=== PATIENT | male | born 1980 | race Caucasian/White ===

== ENCOUNTER 2020-03-29 01:07 | Inpatient (IN) | payer MEDICAID, SELFPAY ==
[2020-03-29] VITALS (12 sets, daily range): BP systolic 110–130; BP diastolic 66–86; PULSE 73–90; RESP 16–18; TEMP 36.4–36.8; O2SAT 94–99; BMI 19.7; BMI 19.0
--- NOTE | 2020-03-29 02:06 | ED.VIS.GEN ---
History of Present Illness Chief Complaint: Substance Abuse Informant: Patient Narrative: Patient is a 39-year-old male with extensive history of illicit drug abuse presenting for detox. Patient states he regularly uses heroin and methamphetamines as well as alcohol. He last had a half of the tall boys of beer today but denies any history of alcohol withdrawal or DTs. Patient states he normally has 3 tall boys a day. He injects heroin and methamphetamines. He uses daily and uses about a half a gram of heroin as well as a quarter of a gram to 1 g of methamphetamines a day. He last used heroin and meth 2 days ago. He is now having some withdrawal symptoms including hot and cold flashes, bad taste in his mouth, restless legs, indigestion and insomnia. Patient states he has been in detox before but most recently was 4 years ago. He states he is ready to get his life together and is tired of disappointing people. He denies any other complaints at this time. Past Medical History - Allergies and Home Meds Allergies/Adverse Reactions: Allergies No Known Allergies Allergy (Verified 03/29/20 01:10) Past Medical History: - - IV drug use Surgical History: noncontributory Lives: Spouse/ Significant Other Smoking Status: Current every day smoker Alcohol: Heavy Drugs: Heroin, - - Methamphetamines - Family History Maternal Family History: Reports: - - Patient with maternal family history of hypertension and ADHD/ADD. Paternal Family History: Reports: Hypertension Review of Systems General: Reports: Chills, Malaise. Denies: Fever, Sweats Eyes: Denies: Visual changes - bilaterally, Diplopia ENT: Denies: Rhinorrhea, Sore throat Cardiovascular: Denies: Chest pain, Palpitations Respiratory: Denies: Dyspnea, Cough, Dyspnea on exertion Gastrointestinal: Reports: Nausea - Indigestion. Denies: Abdominal pain, Vomiting, Diarrhea, Melena, Hematochezia Genitourinary: Denies: Dysuria, Hematuria, Frequency Musculoskeletal: Denies: Back pain, Swelling, Extremity Pain Skin: Denies: Rash, Wounds Neurological: Denies: Headache, Weakness, Numbness Psych: Reports: Depression. Denies: Suicidal thoughts, Suicidal ideations Physical Exam Vital Signs/Narrative: Vital Signs Temp Pulse Resp BP Pulse Ox 03/29/20 01:08 97.9 F 90 18 130/86 H 97 Inital Vital Signs reviewed: Yes General: Well nourished, Well developed, No Acute Distress Head: Normocephalic, Atraumatic Eyes: Perrl, EOMI ENT: Moist mucous membranes, No rhinorrhea Neck: Supple, Nontender Cardiovascular: Regular rate, Regular rhythm, No murmurs Respiratory: No distress, CTA bilaterally, Chest nontender Abdomen: Soft, Nontender, Nondistended, Normal bowel sounds. Negative for: Guarding, Rebound tenderness Back: Nontender, Normal Inspection. Negative for: CVA tenderness Extremities: Nontender, No edema Skin: Normal color, No rash Neurological: Alert, Oriented x3, Cranial nerves II-XII grossly intact, Normal Strength, Normal Sensation Psychological: Normal affect, Normal Mood. Negative for: Depressed, Agitated Diagnostic/Tx/Re-eval Laboratory Data 03/29/20 03/29/20 03/29/20 01:20 01:28 01:28 WBC 5.6 RBC 4.45 L Hgb 13.7 Hct 40.3 MCV 90.6 MCH 30.8 MCHC 34.0 RDW Std Deviation 44.7 H RDW Coeff of Claribel 13.4 Plt Count 201 MPV 10.2 Immature Gran % (Auto) 0.400 Neut % (Auto) 53.6 Lymph % (Auto) 36.2 [place] % (Auto) 7.3 Eos % (Auto) 2.0 Baso % (Auto) 0.5 Absolute Neuts (auto) 3.0 Absolute Lymphs (auto) 2.02 Nucleated RBC % 0 Sodium 143 Potassium 3.8 Chloride 110 H Carbon Dioxide 28.0 Anion Gap 5 BUN 20 H Creatinine 0.92 Estim Creat Clear Calc 101.48 Est GFR (MDRD) Af Amer 118 Est GFR (MDRD) Non-Af 98 BUN/Creatinine Ratio 21.8 H Glucose 140 H Calcium 9.0 Phosphorus 3.0 Magnesium 2.2 Total Bilirubin 0.20 AST 58 H ALT 97 H Alkaline Phosphatase 74 Total Protein 7.6 Albumin 3.6 Globulin 4.0 Albumin/Globulin Ratio 0.9 Urine Color Yellow Urine Clarity Clear Urine pH 7.0 Ur Specific [place] 1.010 Urine Protein 15 H Urine Glucose (UA) Normal Urine Ketones Negative Urine Occult Blood Negative Urine Nitrite Negative Urine Bilirubin Negative Urine Urobilinogen 1 H Ur Leukocyte Esterase Negative Urine RBC 0 SEEN Urine WBC 0 SEEN Ur Squamous Epith Cells 0 SEEN Amorphous Sediment 1+ Urine Bacteria RARE Urine Mucus 0 SEEN Urine Opiates Screen Urine Methadone Screen Ur Barbiturates Screen Ur Phencyclidine Scrn Ur Amphetamines Screen U Methamphetamin-MDMA U Benzodiazepines Scrn Urine Cocaine Screen U Cannabinoids Screen Ur Drug Screen Comment Ethyl Alcohol HIV 1&2 Antibody 03/29/20 03/29/20 03/29/20 01:28 01:28 01:28 WBC RBC Hgb Hct MCV MCH MCHC RDW Std Deviation RDW Coeff of Claribel Plt Count MPV Immature Gran % (Auto) Neut % (Auto) Lymph % (Auto) [place] % (Auto) Eos % (Auto) Baso % (Auto) Absolute Neuts (auto) Absolute Lymphs (auto) Nucleated RBC % Sodium Potassium Chloride Carbon Dioxide Anion Gap BUN Creatinine Estim Creat Clear Calc Est GFR (MDRD) Af Amer Est GFR (MDRD) Non-Af BUN/Creatinine Ratio Glucose Calcium Phosphorus Cancelled Magnesium Cancelled Total Bilirubin AST ALT Alkaline Phosphatase Total Protein Albumin Globulin Albumin/Globulin Ratio Urine Color Urine Clarity Urine pH Ur Specific [place] Urine Protein Urine Glucose (UA) Urine Ketones Urine Occult Blood Urine Nitrite Urine Bilirubin Urine Urobilinogen Ur Leukocyte Esterase Urine RBC Urine WBC Ur Squamous Epith Cells Amorphous Sediment Urine Bacteria Urine Mucus Urine Opiates Screen NEGATIVE Urine Methadone Screen NEGATIVE Ur Barbiturates Screen NEGATIVE Ur Phencyclidine Scrn NEGATIVE Ur Amphetamines Screen POSITIVE H U Methamphetamin-MDMA POSITIVE H U Benzodiazepines Scrn NEGATIVE Urine Cocaine Screen NEGATIVE U Cannabinoids Screen NEGATIVE Ur Drug Screen Comment Ethyl Alcohol 7.0 HIV 1&2 Antibody 03/29/20 01:28 WBC RBC Hgb Hct MCV MCH MCHC RDW Std Deviation RDW Coeff of Claribel Plt Count MPV Immature Gran % (Auto) Neut % (Auto) Lymph % (Auto) [place] % (Auto) Eos % (Auto) Baso % (Auto) Absolute Neuts (auto) Absolute Lymphs (auto) Nucleated RBC % Sodium Potassium Chloride Carbon Dioxide Anion Gap BUN Creatinine Estim Creat Clear Calc Est GFR (MDRD) Af Amer Est GFR (MDRD) Non-Af BUN/Creatinine Ratio Glucose Calcium Phosphorus Magnesium Total Bilirubin AST ALT Alkaline Phosphatase Total Protein Albumin Globulin Albumin/Globulin Ratio Urine Color Urine Clarity Urine pH Ur Specific [place] Urine Protein Urine Glucose (UA) Urine Ketones Urine Occult Blood Urine Nitrite Urine Bilirubin Urine Urobilinogen Ur Leukocyte Esterase Urine RBC Urine WBC Ur Squamous Epith Cells Amorphous Sediment Urine Bacteria Urine Mucus Urine Opiates Screen Urine Methadone Screen Ur Barbiturates Screen Ur Phencyclidine Scrn Ur Amphetamines Screen U Methamphetamin-MDMA U Benzodiazepines Scrn Urine Cocaine Screen U Cannabinoids Screen Ur Drug Screen Comment Ethyl Alcohol HIV 1&2 Antibody Non-Reactive - Medical Decision Making Patient presents to the ER requesting drug detox. Patient not currently intoxicated. He meets a daily alcohol use but does not appear to be having any active alcohol withdrawal symptoms. He has good insight at this time. Patient be admitted for detox for heroin. He is overall well-appearing. He is stable for the general medical floor at time of disposition. ED Disposition - Plan for ED Patient: Disposition: Acute Care Hospital [facility] Diagnosis: Opiate withdrawal, IV drug abuse
--- NOTE | 2020-03-29 02:10 | HP.PCM_ITS ---
Problem List (1) Opiate withdrawal Status: Acute (2) Alcohol withdrawal Status: Acute Qualifiers: Complication of substance-induced condition: with unspecified complication Qualified Code(s): F10.239 - Alcohol dependence with withdrawal, unspecified (3) Heroin use Status: Chronic (4) IV drug abuse Status: Chronic (5) Tobacco use Status: Chronic History of Present Illness Date of Admission: 03/29/20 Chief Complaint: Acute EtOH and Opiate withdrawal The patient is a 39 y/o m w/ PMHx: EtOH Abuse, Polysubstance abuse with IVDA, Tobacco use who presents to the [facility] on 03/29/20 w/ noted acute EtOH withdrawal, onset starting evening prior to ED presentation following last EtOH intake of 1/2 tall boy earlier in the day prior with normally 3 tall boys daily with onset of nausea, tremors, agitation, tactile disturbances in addition to acute opiate withdrawal onset starting similarly over the last 24 hours followinjg last usage 2 days prior w/ 1/2 gm heroin and 1 gm methamphetamine with noted additional abdominal pain/cramping, generalized body aches and pains, rhinorrhea, piloerection, fatigue, restless leg, sweating, yawning. Patient interested in attaining clean status. Discussed at length need to remain distanced from any prior connections with any substance users. Patient lives with his girlfriend who does not use any substances. Work-up in the ED included T 97.9, heart rate 90, BP 130/86, respiratory rate 18, 97% on room air, pending CBC, CMP, UDS and ethyl alcohol level upon requested evaluation. Past Medical History Past Medical History (Chronic Problems): Chronic Problems Heroin use (Chronic) IV drug abuse (Chronic) Tobacco use (Chronic) Allergies No Known Allergies Allergy (Verified 03/29/20 01:10) Home Medications: Ambulatory Orders Medication Instructions Recorded NK 03/29/20 Psychiatric History: Anxiety Lives: Spouse/ Significant Other - Patient lives with his girlfriend. Smoking Status: Current every day smoker - Patient notes 1/2 pack/day cigarette tobacco usage since youth. Tobacco Use: Cigarettes Alcohol: Heavy - Patient notes twisted teas as well as at least 3-4 tall boys daily. Drugs: - - Patient uses IV heroin and methamphetamine with at least 1/2 g/day of heroin and 1/4 to 1 g daily of methamphetamine. - *Family History Maternal History Items: - - Patient with maternal family history of hypertension and ADHD/ADD. Paternal History Items: Hypertension Review of Systems Constitutional: Reports: Anorexia, Chills, Malaise, Weakness, Fatigue. Denies: Fever, Weight Change HEENT: Reports: Nasal Congestion, Post Nasal Drip, Sinus Congestion. Denies: H ead Aches, Sinus Drainage Cardiovascular: Denies: Chest Pain, Palpitations Respiratory: Denies: Cough, Shortness of breath at rest, Sputum production Gastrointestinal: Reports: Abdominal Pain, Nausea. Denies: Diarrhea, Vomiting Genitourinary: Denies: Dysuria Musculoskeletal: Reports: Back Pain, Joint Pain, Muscle pain. Denies: Joint Tenderness Skin: Denies: Rash, Wounds Neurological: Reports: Tremor, - - tactile hallucinations present.. Denies: Focal weakness, Numbness, Tingling Psychiatric: Reports: Anxiety. Denies: Depression, Homicidal Ideations, Suicidal Ideations Endocrine: Reports: Heat/ Cold Intolerance Hematologic/ Lymphatic: Denies: Easy Bruising, Easy Bleeding VTE Information - Inpt Only VTE Present on Admission: No VTE Mechan Device Prophylaxis: None VTE Pharm Prophylaxis ordered?: No Reason prophylaxis not ordered:: Treatment Not Indicated Patient Problems: Active and Suspected Problems Opiate withdrawal (Acute) Alcohol withdrawal (Acute) Subjective: Patient laying in the ED bed, uncomfortable appearing, mild tremors, restless. Objective: Physical Examination: General: awake, alert, oriented x 3 and cooperative, seated upright in the ED bed, fatigued appearance although restless and mildly agitated. Skin: normal color, turgor, no icterus, cyanosis. HEENT: AT/NC, EOMI, PERRLA, dry MM, rhinorrhea evident, no carotid bruits or JVD noted. Lungs: CTA bilaterally, moderate effort, moderate decrease BL bases, no rales, ronchi or wheezing. Heart: Mildly tachycardic with regular rhythm; no gallop, rub audible. Abdomen: soft, mild generalized discomfort with palpation, ND, mildly hyperactive BS, positive HM. Extremities: no cyanosis, clubbing, or edema. Neurological: patient awake, alert, oriented x 3; cognitive function intact; pupils equally reactive to light and accomodation; cranial nerves II-XII grossly normal, moving all 4 extremities, no focal deficits, strength moderately global decrease secondary to acute presentation, mild tremors noted, restless, mildly agitated. Psychiatric: affect appears uncomfortable, mildly agitated, does admit to anxiety but no acute evidence of depressive or anxiety feelings. - Physical Exam Vitals/I&O's: Vital Signs Temp Pulse Resp BP Pulse Ox 97.9 F 90 18 130/86 H 97 03/29/20 01:08 03/29/20 01:08 03/29/20 01:08 03/29/20 01:08 03/29/20 01:08 Oxygen Delivery Method Room Air Weight: 145 lb 4.554 oz Body Mass Index (BMI) 19.7 Laboratory Results 03/29/20 01:28: WBC Pending, RBC Pending, Hgb Pending, Hct Pending, MCV Pending, MCH Pending, MCHC Pending, RDW Std Deviation Pending, RDW Coeff of Claribel Pending, Plt Count Pending, Neut % (Auto) Pending, Absolute Neuts (auto) Pending 03/29/20 01:28: Sodium Pending, Potassium Pending, Chloride Pending, Carbon Dioxide Pending, Anion Gap Pending, BUN Pending, Creatinine Pending, Est GFR (MDRD) Af Amer Pending, Est GFR (MDRD) Non-Af Pending, BUN/Creatinine Ratio Pending, Glucose Pending, Calcium Pending, Total Bilirubin Pending, AST Pending, ALT Pending, Alkaline Phosphatase Pending, Total Protein Pending, Albumin Pending 03/29/20 01:28: Ethyl Alcohol Pending 03/29/20 01:28: Urine Opiates Screen Pending, Urine Methadone Screen Pending, Ur Barbiturates Screen Pending, Ur Phencyclidine Scrn Pending, Ur Amphetamines Screen Pending, U Methamphetamin-MDMA Pending, U Benzodiazepines Scrn Pending, Urine Cocaine Screen Pending, U Cannabinoids Screen Pending, Ur Drug Screen Comment Pending Assessment/Plan All Active Problems Opiate withdrawal (Acute) Alcohol withdrawal (Acute) The patient is a 39 y/o m w/ PMHx: EtOH Abuse, Polysubstance abuse with IVDA ( heroin, meth), Tobacco use who presents to the [facility] on 03/29/20 w/ noted acute EtOH and opiate withdrawal 1. Acute EtOH Withdrawal: Will admit to MS given planned usage concurrent withdrawal protocols, routine labs obtained in the ED upon presentation and pending upon evaluation. Given interest in sobriety, will initiate and continue on protocol with taper course of Phenobarbital, scheduled gabapentin for seizure prophylaxis, as needed Catapres, Bentyl, Vistaril, IV fluids, IV antiemetics, Tylenol as needed for pain. Will consult Case management for assistance for transition to next level of rehabilitation care. Mag, phos pending. Maintain on CIWA protocol concurrently. 2. Acute Opiate Withdrawal: In addition to noted above EtOH abuse, patient with significant opiate abuse with IV heroin, pending ED labs as noted, will initiate on additionally tapering course of Subutex, as needed Librium, Sinemet, Catapres, Bentyl, Vistaril, IV fluids, IV antiemetics, Tylenol as needed for pain. CM as noted consulted for assistance for transition to next level of care. 3. Polysubstance Abuse, IVDA Hx, History of Hepatitis C, Chronic: Patient currently not candidate for hep C treatment currently as needs to be clean, sober x 6 months, documented attendance NA or AA meetings, counseling and ongoing negative drug screens. Once appropriate GI, ID to initiate. HIV, hepatitis panel to assess for co-infection pending. Encouraged PCP establishment and follow-up. 4. Tobacco Abuse: Encouraged cessation, inpatient consultation per RT, NR if desired. 5. DVT prophylaxis: Low risk, encourage ambulation. Inpatient E&M: [id number] Init Hosp L3
[2020-03-29 02:12] LABS: Absolute Lymphocyte Count 2.02 X10^3/uL (0.83-4.51); Basophil# 0.03 X10^3/uL; Basophil% 0.5 % (0-1); Eosinophil# 0.11 X10^3/uL; Hematocrit 40.3 % (40-54); Hemoglobin 13.7 g/dL (13.0-16.5); Lymphocyte # 2.02 X10^3/ul (4.0); Lymphocyte % 36.2 % (19-41); Mean Corpuscular Hgb 30.8 pg (27.0-32.0); Mean Corpuscular Volume 90.6 fL (80-94); Mean Platelet Vol. 10.2 fl (6.2-12.0); Monocyte# 0.41 X10^3/uL; Monocyte% 7.3 % (0-10); NRBC Flagged by Analyzer 0 % (0-5); Neutrophil # 2.99 X10^3/uL (2.7-7.7); Neutrophil % 53.6 % (47-70); Platelet Count 201 K/mm3 (150-450); RBC Distribution Width CV 13.4 % (11.6-14.6); RBC Distribution Width SD 44.7 fl (35.1-43.9); Red Blood Count 4.45 M/mm3 (4.6-6.2); White Blood Count 5.6 K/mm3 (4.4-11.0)
[2020-03-29 02:22] LABS: Color, Urine Yellow (Yellow); Glucose, Dipstick Normal (Normal); Ketone-Dipstick Negative (Negative); Leukocyte Esterase-Dipstick Negative /ul (Negative); Mucous, Urine 0 SEEN /hpf (<or=2+); Nitrite-Dipstick Negative (Negative); Occult Blood-Urine Negative /ul (Negative); Protein-Dipstick 15 mg/dl (Negative); Red Blood Cells-Urine 0 SEEN /hpf (0-5); Squamous Epithelial Cells - UA 0 SEEN /hpf (0-5); Urine Bilirubin Dipstick Negative (Negative); Urine Clarity Clear (Clear); Urine Urobilinogen 1 mg/dl (Normal); White Blood Cells 0 SEEN /hpf (0-5)
[2020-03-29 02:26] LABS: ALB/GLOB Ratio 0.9 RATIO (0.9-2.4); AST(SGOT) 58 U/L (15-37); Alanine Aminotransfer ALT/SGPT 97 U/L (16-61); Albumin, Serum 3.6 g/dL (3.2-5.0); Alkaline Phosphatase 74 U/L (45-117); Anion Gap 5 (5-15); BUN 20 mg/dL (7-18); BUN/Creat Ratio 21.8 RATIO (10-20); Chloride 110 mmol/L (98-107); Creatinine, Serum 0.92 mg/dL (0.70-1.30); EST Glomerular Filtration Rate 98 mL/min (>60); Est Glom Filt Rate - Afr Amer 118 mL/min (>60); Estimated Creatinine Clearance 101.48 ml/min; Glucose 140 mg/dL (74-106); Potassium 3.8 mmol/L (3.5-5.1); Protein, Total 7.6 g/dL (6.4-8.2); Sodium Level 143 mmol/L (136-145)
[2020-03-29 02:27] LABS: Amphetamine Urine VISTA POSITIVE (<1000 ng/mL); Barbiturate Urine VISTA NEGATIVE (< 200 ng/mL); Benzodiazepine Urine VISTA NEGATIVE (< 200 ng/mL); Cocaine Urine VISTA NEGATIVE (< 300 ng/mL); Ecstacy Urine VISTA POSITIVE (< 500 ng/mL); Methadone Urine VISTA NEGATIVE (< 300 ng/mL); PCP Urine VISTA NEGATIVE (< 25 ng/mL); THC Urine VISTA NEGATIVE (< 50 ng/mL); Vista UDS pH Range 7
[2020-03-29 02:30] LABS: Amorphous Sediment 1+; Bacteria RARE /hpf (None Seen)
[2020-03-29 03:09] LABS: Magnesium 2.2 mg/dL (1.6-2.6)
[2020-03-29] MEDS: Lactated Ringers 1,000 ML 125 ML IV (03:18)
[2020-03-29 03:45] LABS: HIV - WCH Non-Reactive (Nonreactive)
[2020-03-29] MEDS: Phenobarbital 32.4 MG Tablet PO ×5 (04:06→20:42)
[2020-03-29] MEDS: Folic Acid 1 MG Tablet PO (11:38)
[2020-03-29] MEDS: hydrOXYzine PAM 25 MG Capsule 50 MG PO ×2 (11:38→20:57)
[2020-03-29] MEDS: Thiamine Hydrochloride 100 MG Tablet PO (11:38)
[2020-03-29] MEDS: Methocarbamol 750 MG Tablet 1500 MG PO (11:38)
[2020-03-29] MEDS: Buprenorphine HCl 2 MG TAB.SUBL SL ×2 (11:39→18:14)
[2020-03-29] MEDS: Dicyclomine 10 MG Capsule 20 MG PO (11:39)
--- NOTE | 2020-03-29 11:50 | PN_ITS ---
Patient Problems: Active and Suspected Problems Opiate withdrawal (Acute) Alcohol withdrawal (Acute) Subjective: Patient seen and examined. He complained of headache, generalized malaise, abdominal pain and cramping and felt like he was in withdrawal. He is here for detox from alcohol, heroin and methamphetamines. Review of symptoms otherwise negative. Vitals are stable. Labs unremarkable. Vitals/I&O's: Vital Signs Temp Pulse Resp BP Pulse Ox 98.3 F 73 18 110/66 99 03/29/20 08:05 03/29/20 08:05 03/29/20 08:05 03/29/20 08:05 03/29/20 08:05 Oxygen Delivery Method Room Air Weight: 143 lb 15.39 oz Body Mass Index (BMI) 19.0 Intake and Output for Last 24 Hours 03/27/20 03/28/20 03/29/20 23:59 23:59 23:59 Intake Total 1290 / 1290 Balance 1290 / 1290 General: Alert, Oriented x3, Cooperative, - - Restless, anxious HEENT: Atraumatic, PERRLA, EOMI, Normocephalic Oral: Moist Mucosa Neck: Supple, No JVD, Negative Carotid Bruits Lungs: Clear to auscultation, Normal air movement Cardiovascular: Regular rate, Regular Rhythm, Normal S1, Normal S2, No murmurs Abdomen: Bowel Sounds Present, Soft, Non Tender Extremities: No clubbing, No cyanosis, No edema, Capillary Refill Less than 3 Seconds Skin: No rashes, No breakdown Musculoskeletal: No Tenderness to Palpation of Joints or Extremities Lymphatic: No Cervical, Supraclavicular, or Inguinal Adenopathy Neurological: Cranial nerves II-XII grossly intact, Neuro grossly intact, Motor Exam 5/5 strength throughout Psych/Mental Status: Normal Affect, Appropriate, Alert and oriented to time, place, person, mood and affect Laboratory Results 03/29/20 01:20: Urine Color Yellow, Urine Clarity Clear, Urine pH 7.0, Ur Specific [place] 1.010, Urine Protein 15 H, Urine Glucose (UA) Normal, Urine Ketones Negative, Urine Occult Blood Negative, Urine Nitrite Negative, Urine Bilirubin Negative, Urine Urobilinogen 1 H, Ur Leukocyte Esterase Negative, Urine RBC 0 SEEN, Urine WBC 0 SEEN, Ur Squamous Epith Cells 0 SEEN, Amorphous Sediment 1+, Urine Bacteria RARE, Urine Mucus 0 SEEN 03/29/20 01:28: WBC 5.6, RBC 4.45 L, Hgb 13.7, Hct 40.3, MCV 90.6, MCH 30.8, MCHC 34.0, RDW Std Deviation 44.7 H, RDW Coeff of Claribel 13.4, Plt Count 201, MPV 10.2, Immature Gran % (Auto) 0.400, Neut % (Auto) 53.6, Lymph % (Auto) 36.2, [place] % (Auto) 7.3, Eos % (Auto) 2.0, Baso % (Auto) 0.5, Absolute Neuts (auto) 3.0, Absolute Lymphs (auto) 2.02, Nucleated RBC % 0 03/29/20 01:28: Sodium 143, Potassium 3.8, Chloride 110 H, Carbon Dioxide 28.0, Anion Gap 5, BUN 20 H, Creatinine 0.92, Estim Creat Clear Calc 101.48, Est GFR (MDRD) Af Amer 118, Est GFR (MDRD) Non-Af 98, BUN/Creatinine Ratio 21.8 H, Glucose 140 H, Calcium 9.0, Phosphorus 3.0, Magnesium 2.2, Total Bilirubin 0.20, AST 58 H, ALT 97 H, Alkaline Phosphatase 74, Total Protein 7.6, Albumin 3.6, Globulin 4.0, Albumin/Globulin Ratio 0.9 03/29/20 01:28: Ethyl Alcohol 7.0 03/29/20 01:28: Urine Opiates Screen NEGATIVE, Urine Methadone Screen NEGATIVE, Ur Barbiturates Screen NEGATIVE, Ur Phencyclidine Scrn NEGATIVE, Ur Amphetamines Screen POSITIVE H, U Methamphetamin-MDMA POSITIVE H, U Benzodiazepines Scrn NEGATIVE, Urine Cocaine Screen NEGATIVE, U Cannabinoids Screen NEGATIVE, Ur Drug Screen Comment 03/29/20 01:28: Phosphorus Cancelled, Magnesium Cancelled 03/29/20 01:28: HIV 1&2 Antibody Non-Reactive 03/29/20 06:40: Hepatitis A IgM Ab Pending, Hepatitis A Ab Total Pending, Hep Bs Antigen Pending, Hep B Core Total Ab Pending, Hep B Core IgM Ab Pending Current Medications Acetaminophen (Tylenol) 500 mg PO Q4H PRN PRN PRN Reason: Temp > 100.4 F Al Hydroxide/Mg Hydroxide (Mylanta Ii) 30 ml PO Q6H PRN PRN PRN Reason: dyspesia Bisacodyl (Dulcolax) 10 mg RECTAL DAILY PRN PRN Reason: Constipation Buprenorphine HCl (Buprenorphine Hcl) 4 mg SL Q8H [facility]; Taper Stop: 04/01/20 09:59 Last Admin: 03/29/20 11:39 Dose: 4 mg Documented by: Clonidine (Catapres) 0.1 mg PO Q8H PRN PRN PRN Reason: RESTLESSNESS Dicyclomine HCl (Bentyl) 20 mg PO Q6H PRN PRN PRN Reason: abdominal discomfort Last Admin: 03/29/20 11:39 Dose: 20 mg Documented by: Folic Acid (Folic Acid) 1 mg PO DAILY@0800 [facility] Last Admin: 03/29/20 11:38 Dose: 1 mg Documented by: Gabapentin (Neurontin) 300 mg PO Q8H PRN PRN PRN Reason: moderate to severe anxiety Hydroxyzine Pamoate (Vistaril Pamoate Capsule) 50 mg PO Q4H PRN PRN PRN Reason: mild anxiety Last Admin: 03/29/20 11:38 Dose: 50 mg Documented by: Ibuprofen (Motrin) 600 mg PO Q8H PRN PRN PRN Reason: Pain Score 1-10/10 Loperamide HCl (Imodium) 2 mg PO Q4H PRN PRN PRN Reason: LOOSE STOOLS Methocarbamol (Methocarbamol) 1,500 mg PO Q6H PRN PRN PRN Reason: MUSCLE SPASM Last Admin: 03/29/20 11:38 Dose: 1,500 mg Documented by: Nicotine (Nicoderm Cq (Pbkc)) 14 mg TRANSDERM. DAILY [facility] Last Admin: 03/29/20 11:38 Dose: 14 mg Documented by: Nutritional Formula (Lactose Free) (Ensure Enlive) 120 ml PO 4X/DAY [facility] Last Admin: 03/29/20 11:42 Dose: 120 ml Documented by: Ondansetron HCl (Zofran Odt) 8 mg PO Q8H PRN PRN PRN Reason: NAUSEA Phenobarbital (Phenobarbital) 97.2 mg PO Q4H [facility]; Taper Stop: 04/02/20 11:44 Last Admin: 03/29/20 11:39 Dose: 97.2 mg Documented by: Senna (Senokot) 2 tablet PO QHS PRN PRN PRN Reason: Constipation Sodium Chloride () 10 - 40 ml IV UD PRN PRN Reason: SALINE FLUSH Thiamine HCl (Vitamin B1) 100 mg PO DAILYCM [facility] Last Admin: 03/29/20 11:38 Dose: 100 mg Documented by: Trazodone HCl (Desyrel) 100 mg PO QHS PRN PRN PRN Reason: INSOMNIA STROKE Vital Signs/Narrative: Vital Signs Temp Pulse Resp BP Pulse Ox 03/29/20 08:05 98.3 F 73 18 110/66 99 Medical Necessity - Tobacco Use Smoking Status: Current every day smoker Tobacco Use: Cigarettes Assessment/Plan All Active Problems Opiate withdrawal (Acute) Alcohol withdrawal (Acute) #Acute alcohol and opiate withdrawal * Patient complains of lethargy and malaise as well as abdominal cramping. * On alcohol and opiate withdrawal protocol with phenobarbital. * Also on tapering course of buprenorphine. * monitor CINA and CIWA score * # History of hepatitis C: due to IV drug abuse. still using IV drugs, so would not qualify for treatment. DVT prophylaxis: low risk, encourage ambulation Inpatient E&M: [id number] Subs Hosp L2
--- NOTE | 2020-03-29 13:26 | ADDICTION ---
This professor of social work met with patient in his room to conduct ASAM, MSE and DUDIT assessments and to complete discharge planning. Patient was alert and oriented x4 and presented with depressed mood and tearful affect. He shared that he has been using Fentanyl/ Meth/ Alcohol on a daily basis and uses IV administration for Fentanyl and Meth. Patient is interested in treatment but wants to engage in [place], [place]. This account underwriter provided patient with treatment agencies in his preferred area. He agreed to contact these facilities and schedule an appointment by 04/02/2020. This account underwriter will fax completed assessments and discharge plan to [facility].
[2020-03-29] MEDS: cloNIDine HCl 0.1 MG Tablet PO (14:46)
[2020-03-30] VITALS (12 sets, daily range): BP systolic 96–113; BP diastolic 47–70; PULSE 68–86; RESP 14–16; TEMP 36.4–36.9; O2SAT 93–99
[2020-03-30] MEDS: Phenobarbital 32.4 MG Tablet PO ×6 (00:26→23:42)
[2020-03-30] MEDS: Buprenorphine HCl 2 MG TAB.SUBL SL ×2 (02:19→11:29)
[2020-03-30] MEDS: Thiamine Hydrochloride 100 MG Tablet PO (07:26)
[2020-03-30] MEDS: Folic Acid 1 MG Tablet PO (07:26)
[2020-03-30 08:09] LABS: HEPATITIS B SURFACE AG Negative (Negative); Hepatitis A AB, Total Positive (Negative); Hepatitis A IgM Antibody Negative (Negative); Hepatitis B Core AB IgM Negative (Negative); Hepatitis B Core Ab Total Negative (Negative); Hepatitis C Ab >11.0 s/co ratio (0.0-0.9)
[2020-03-30] MEDS: Methocarbamol 750 MG Tablet 1500 MG PO ×2 (08:27→21:30)
--- NOTE | 2020-03-30 12:55 | PN_ITS ---
Patient Problems: Active and Suspected Problems Opiate withdrawal (Acute) Alcohol withdrawal (Acute) Subjective: Patient seen and examined. He has no complaints today and feels well. Tremors on abdominal consult resolved. Review of signs otherwise negative. He has remained hemodynamically stable. Vitals/I&O's: Vital Signs Temp Pulse Resp BP Pulse Ox 98 F 74 16 109/70 99 03/30/20 12:32 03/30/20 12:32 03/30/20 12:32 03/30/20 12:32 03/30/20 12:32 Oxygen Delivery Method Room Air Weight: 143 lb 15.39 oz Body Mass Index (BMI) 19.0 Intake and Output for Last 24 Hours 03/28/20 03/29/20 03/30/20 23:59 23:59 23:59 Intake Total 3890 / 3890 1025 / 1025 Balance 3890 / 3890 1025 / 1025 General: Alert, Oriented x3, Cooperative HEENT: Atraumatic, PERRLA, EOMI, Normocephalic Oral: Moist Mucosa Neck: Supple, No JVD, Negative Carotid Bruits Lungs: Clear to auscultation, Normal air movement Cardiovascular: Regular rate, Regular Rhythm, Normal S1, Normal S2, No murmurs Abdomen: Bowel Sounds Present, Soft, Non Tender Extremities: No clubbing, No cyanosis, No edema, Capillary Refill Less than 3 Seconds Skin: No rashes, No breakdown Musculoskeletal: No Tenderness to Palpation of Joints or Extremities Lymphatic: No Cervical, Supraclavicular, or Inguinal Adenopathy Neurological: Cranial nerves II-XII grossly intact, Neuro grossly intact, Motor Exam 5/5 strength throughout Psych/Mental Status: Normal Affect, Appropriate, Alert and oriented to time, place, person, mood and affect Current Medications Acetaminophen (Tylenol) 500 mg PO Q4H PRN PRN PRN Reason: Temp > 100.4 F Al Hydroxide/Mg Hydroxide (Mylanta Ii) 30 ml PO Q6H PRN PRN PRN Reason: dyspesia Bisacodyl (Dulcolax) 10 mg RECTAL DAILY PRN PRN Reason: Constipation Buprenorphine HCl (Buprenorphine Hcl) 2 mg SL Q8H [facility]; Taper Stop: 04/01/20 09:59 Last Admin: 03/30/20 11:29 Dose: 2 mg Documented by: Clonidine (Catapres) 0.1 mg PO Q8H PRN PRN PRN Reason: RESTLESSNESS Last Admin: 03/29/20 14:46 Dose: 0.1 mg Documented by: Dicyclomine HCl (Bentyl) 20 mg PO Q6H PRN PRN PRN Reason: abdominal discomfort Last Admin: 03/29/20 11:39 Dose: 20 mg Documented by: Folic Acid (Folic Acid) 1 mg PO DAILY@0800 [facility] Last Admin: 03/30/20 07:26 Dose: 1 mg Documented by: Gabapentin (Neurontin) 300 mg PO Q8H PRN PRN PRN Reason: moderate to severe anxiety Hydroxyzine Pamoate (Vistaril Pamoate Capsule) 50 mg PO Q4H PRN PRN PRN Reason: mild anxiety Last Admin: 03/29/20 20:57 Dose: 50 mg Documented by: Ibuprofen (Motrin) 600 mg PO Q8H PRN PRN PRN Reason: Pain Score 1-10/10 Loperamide HCl (Imodium) 2 mg PO Q4H PRN PRN PRN Reason: LOOSE STOOLS Methocarbamol (Methocarbamol) 1,500 mg PO Q6H PRN PRN PRN Reason: MUSCLE SPASM Last Admin: 03/30/20 08:27 Dose: 1,500 mg Documented by: Nicotine (Nicoderm Cq (Pbkc)) 14 mg TRANSDERM. DAILY [facility] Last Admin: 03/30/20 11:29 Dose: 14 mg Documented by: Nutritional Formula (Lactose Free) (Ensure Enlive) 120 ml PO 4X/DAY [facility] Last Admin: 03/30/20 11:30 Dose: 120 ml Documented by: Ondansetron HCl (Zofran Odt) 8 mg PO Q8H PRN PRN PRN Reason: NAUSEA Phenobarbital (Phenobarbital) 64.8 mg PO Q4H [facility]; Taper Stop: 04/02/20 11:44 Last Admin: 03/30/20 12:28 Dose: 64.8 mg Documented by: Senna (Senokot) 2 tablet PO QHS PRN PRN PRN Reason: Constipation Sodium Chloride () 10 - 40 ml IV UD PRN PRN Reason: SALINE FLUSH Thiamine [facility] ([facility]amin [facility]) [facility] Last Admin: 03/30/20 07:26 Dose: 100 mg Documented by: Trazodone HCl (Desyrel) 100 mg PO QHS PRN PRN PRN Reason: INSOMNIA STROKE Vital Signs/Narrative: Vital Signs Temp Pulse Resp BP Pulse Ox 03/30/20 12:32 98 F 74 16 109/70 99 Medical Necessity - Tobacco Use Smoking Status: Current every day smoker Tobacco Use: Cigarettes Assessment/Plan All Active Problems Opiate withdrawal (Acute) Alcohol withdrawal (Acute) #Acute alcohol and opiate withdrawal * Patient complains of lethargy and malaise as well as abdominal cramping. * On alcohol and opiate withdrawal protocol with phenobarbital. * Also on tapering course of buprenorphine. * monitor CINA and CIWA score- CIWA score is 2 today, CINA score is 1 * # History of hepatitis C: due to IV drug abuse. still using IV drugs, so would not qualify for treatment. DVT prophylaxis: low risk, encourage ambulation Disposition: wants to be discharged home when medically stable, to follow up with rehab facility on outpatient basis. Inpatient E&M: 98872 Subs Hosp L2
[2020-03-30] MEDS: hydrOXYzine PAM 25 MG Capsule 50 MG PO (21:30)
[2020-03-31] VITALS (9 sets, daily range): BP systolic 104–113; BP diastolic 61–73; PULSE 70–82; RESP 16; TEMP 36.4–36.6; O2SAT 96–98
[2020-03-31 01:18] LABS: Hep B Surface Antibodies Non Reactive (.)
[2020-03-31] MEDS: Buprenorphine HCl 2 MG TAB.SUBL SL ×3 (01:28→21:09)
[2020-03-31] MEDS: Phenobarbital 32.4 MG Tablet PO ×5 (03:20→23:06)
[2020-03-31] MEDS: Ibuprofen 600 MG Tablet PO (08:47)
[2020-03-31] MEDS: Folic Acid 1 MG Tablet PO (08:47)
[2020-03-31] MEDS: Thiamine Hydrochloride 100 MG Tablet PO (08:47)
--- NOTE | 2020-03-31 09:53 | PN_ITS ---
Patient Problems: Active and Suspected Problems Opiate withdrawal (Acute) Alcohol withdrawal (Acute) Subjective: Patient seen and examined. He has no complaints this morning and feels well. Review of systems otherwise negative. He has remained hemodynamically stable. Vitals/I&O's: Vital Signs Temp Pulse Resp BP Pulse Ox 97.5 F L 74 16 106/65 98 03/31/20 08:49 03/31/20 08:49 03/31/20 08:49 03/31/20 08:49 03/31/20 08:49 Oxygen Delivery Method Room Air Weight: 143 lb 15.39 oz Body Mass Index (BMI) 19.0 Intake and Output for Last 24 Hours 03/29/20 03/30/20 03/31/20 23:59 23:59 23:59 Intake Total 3890 / 3890 1425 / 1425 1200 / 1200 Balance 3890 / 3890 1425 / 1425 1200 / 1200 General: Alert, Oriented x3, Cooperative HEENT: Atraumatic, PERRLA, EOMI, Normocephalic Oral: Moist Mucosa Neck: Supple, No JVD, Negative Carotid Bruits Lungs: Clear to auscultation, Normal air movement Cardiovascular: Regular rate, Regular Rhythm, Normal S1, Normal S2, No murmurs Abdomen: Bowel Sounds Present, Soft, Non Tender Extremities: No clubbing, No cyanosis, No edema, Capillary Refill Less than 3 Seconds Skin: No rashes, No breakdown Musculoskeletal: No Tenderness to Palpation of Joints or Extremities Lymphatic: No Cervical, Supraclavicular, or Inguinal Adenopathy Neurological: Cranial nerves II-XII grossly intact, Neuro grossly intact, Motor Exam 5/5 strength throughout Psych/Mental Status: Normal Affect, Appropriate, Alert and oriented to time, place, person, mood and affect Laboratory Results 03/29/20 06:40: Hepatitis A IgM Ab Negative, Hepatitis A Ab Total Positive H, Hep Bs Antigen Negative, Hep B Core Total Ab Negative, Hep B Core IgM Ab Negative, Hepatitis C Ab Confirm >11.0 H Current Medications Acetaminophen (Tylenol) 500 mg PO Q4H PRN PRN PRN Reason: Temp > 100.4 F Al Hydroxide/Mg Hydroxide (Mylanta Ii) 30 ml PO Q6H PRN PRN PRN Reason: dyspesia Bisacodyl (Dulcolax) 10 mg RECTAL DAILY PRN PRN Reason: Constipation Buprenorphine HCl (Buprenorphine Hcl) 2 mg SL Q8H [facility]; Taper Stop: 04/01/20 09:59 Last Admin: 03/31/20 01:28 Dose: 2 mg Documented by: Clonidine (Catapres) 0.1 mg PO Q8H PRN PRN PRN Reason: RESTLESSNESS Last Admin: 03/29/20 14:46 Dose: 0.1 mg Documented by: Dicyclomine HCl (Bentyl) 20 mg PO Q6H PRN PRN PRN Reason: abdominal discomfort Last Admin: 03/29/20 11:39 Dose: 20 mg Documented by: Folic Acid (Folic Acid) 1 mg PO DAILY@0800 [facility] Last Admin: 03/31/20 08:47 Dose: 1 mg Documented by: Gabapentin (Neurontin) 300 mg PO Q8H PRN PRN PRN Reason: moderate to severe anxiety Hydroxyzine Pamoate (Vistaril Pamoate Capsule) 50 mg PO Q4H PRN PRN PRN Reason: mild anxiety Last Admin: 03/30/20 21:30 Dose: 50 mg Documented by: Ibuprofen (Motrin) 600 mg PO Q8H PRN PRN PRN Reason: Pain Score 1-10/10 Last Admin: 03/31/20 08:47 Dose: 600 mg Documented by: Loperamide HCl (Imodium) 2 mg PO Q4H PRN PRN PRN Reason: LOOSE STOOLS Methocarbamol (Methocarbamol) 1,500 mg PO Q6H PRN PRN PRN Reason: MUSCLE SPASM Last Admin: 03/30/20 21:30 Dose: 1,500 mg Documented by: Nicotine (Nicoderm Cq (Pbkc)) 14 mg TRANSDERM. DAILY [facility] Last Admin: 03/30/20 11:29 Dose: 14 mg Documented by: Nutritional Formula (Lactose Free) (Ensure Enlive) 120 ml PO 4X/DAY [facility] Last Admin: 03/30/20 21:30 Dose: 120 ml Documented by: Ondansetron HCl (Zofran Odt) 8 mg PO Q8H PRN PRN PRN Reason: NAUSEA Phenobarbital (Phenobarbital) 64.8 mg PO Q4H [facility]; Taper Stop: 04/02/20 11:44 Last Admin: 03/31/20 08:48 Dose: 64.8 mg Documented by: Senna (Senokot) 2 tablet PO QHS PRN PRN PRN Reason: Constipation Sodium Chloride () 10 - 40 ml IV UD PRN PRN Reason: SALINE FLUSH Thiamine HCl (Vitamin B1) 100 mg PO DAILYCM [facility] Last Admin: 03/31/20 08:47 Dose: 100 mg Documented by: Trazodone HCl (Desyrel) 100 mg PO QHS PRN PRN PRN Reason: INSOMNIA STROKE Vital Signs/Narrative: Vital Signs Temp Pulse Resp BP Pulse Ox 03/31/20 08:49 97.5 F L 74 16 106/65 98 03/31/20 07:06 96 03/31/20 07:05 70 Medical Necessity - Tobacco Use Smoking Status: Current every day smoker Tobacco Use: Cigarettes Assessment/Plan All Active Problems Opiate withdrawal (Acute) Alcohol withdrawal (Acute) #Acute alcohol and opiate withdrawal * feels well today * On alcohol withdrawal protocol with phenobarbital. * CIWA score toady is 3 * on multivites, thiamine and folic acid supplementation * 2. Acute opioid withdrawal * CINA score today is 1 * on tapering course of buprenorphine. * * # History of hepatitis C: * due to IV drug abuse. still using IV drugs, so would not qualify for treatment. * Hepatology screen was positive for hepatitis A antibodies and hepatitis C antibodies of more than 11. * Hepatitis B antibodies were negative. DVT prophylaxis: low risk, encourage ambulation Disposition: wants to be discharged home when medically stable, to follow up with rehab facility on outpatient basis. Inpatient E&M: 70725 Subs Hosp L2
[2020-03-31] MEDS: Methocarbamol 750 MG Tablet 1500 MG PO (21:10)
[2020-03-31] MEDS: Ondansetron ODT 4 MG Tablet 8 MG PO (21:10)
[2020-03-31] MEDS: traZODone 100 MG Tablet PO (21:10)
[2020-03-31] MEDS: hydrOXYzine PAM 25 MG Capsule 50 MG PO (21:10)
[2020-03-31] MEDS: 0.9% Saline Lock 10 ML Syringe IV (23:06)
[2020-04-01] MEDS: Ibuprofen 600 MG Tablet PO ×3 (02:09→23:07)
[2020-04-01] MEDS: Gabapentin 300 MG Capsule PO ×2 (02:09→15:11)
[2020-04-01 02:11] VITALS: BP 120/65; PULSE 83; RESP 14; TEMP 36.6; O2SAT 99
[2020-04-01] MEDS: Phenobarbital 32.4 MG Tablet PO ×4 (05:22→23:01)
[2020-04-01] MEDS: Thiamine Hydrochloride 100 MG Tablet PO (08:36)
[2020-04-01] MEDS: Folic Acid 1 MG Tablet PO (08:37)
[2020-04-01 08:43] VITALS: BP 108/67; PULSE 77; RESP 16; TEMP 36.4; O2SAT 99
--- NOTE | 2020-04-01 10:49 | CASEMGMT ---
Social Work Note DAVID updated by RN that pt has Court today at 2:30pm at [facility]. Pt's significant other had called in and requested court document be faxed to [phone]. DAVID in to speak with pt. SW introduced self and role at [facility]. Pt is alert and orientated x3, confirms that he has a court date scheduled for today and requests a document be faxed over. DAVID faxed court document to [facility] [address]. Gina Rubio PLATING TANK OPERATOR, JIG BORER
[2020-04-01 11:27] VITALS: BP 121/69; PULSE 74; RESP 16; TEMP 36.6; O2SAT 97
--- NOTE | 2020-04-01 13:08 | PN_ITS ---
Patient Problems: Active and Suspected Problems Opiate withdrawal (Acute) Alcohol withdrawal (Acute) Reason for Visit: opiate and alcohol withdrawal. Subjective: Still feels ill. No abdominal cramps. Tolerating PO. Vitals/I&O's: Vital Signs Temp Pulse Resp BP Pulse Ox 36.6 C 74 16 121/69 H 97 04/01/20 11:27 04/01/20 11:27 04/01/20 11:27 04/01/20 11:27 04/01/20 11:27 Oxygen Delivery Method Room Air Weight: 65.3 kg Body Mass Index (BMI) 19.0 Intake and Output for Last 24 Hours 03/30/20 03/31/20 04/01/20 23:59 23:59 23:59 Intake Total 1425 / 1425 2049 250 / 250 Balance 1425 / 1425 2049 250 / 250 General: Alert, No apparent distress HEENT: Atraumatic, Normocephalic Oral: Moist Mucosa, No Gingival or Mucosal Lesions/ Ulcerations Neck: No Nodes, Thyroid Normal Size and Texture Lungs: Clear to auscultation, Normal air movement, No rhonchi, No wheeze, No rales Cardiovascular: Regular rate, Regular Rhythm, Normal S1, Normal S2 Abdomen: Bowel Sounds Present, Soft, Non Tender, Non-Distended, No Hepato- splenomegaly Extremities: No edema, No Calf Tenderness Psych/Mental Status: Appropriate, Flat Affect Current Medications Acetaminophen (Tylenol) 500 mg PO Q4H PRN PRN PRN Reason: Temp > 100.4 F Al Hydroxide/Mg Hydroxide (Mylanta Ii) 30 ml PO Q6H PRN PRN PRN Reason: dyspesia Bisacodyl (Dulcolax) 10 mg RECTAL DAILY PRN PRN Reason: Constipation Clonidine (Catapres) 0.1 mg PO Q8H PRN PRN PRN Reason: RESTLESSNESS Last Admin: 03/29/20 14:46 Dose: 0.1 mg Documented by: Dicyclomine HCl (Bentyl) 20 mg PO Q6H PRN PRN PRN Reason: abdominal discomfort Last Admin: 03/29/20 11:39 Dose: 20 mg Documented by: Folic Acid (Folic Acid) 1 mg PO DAILY@0800 [facility] Last Admin: 04/01/20 08:37 Dose: 1 mg Documented by: Gabapentin (Neurontin) 300 mg PO Q8H PRN PRN PRN Reason: moderate to severe anxiety Last Admin: 04/01/20 02:09 Dose: 300 mg Documented by: Hydroxyzine Pamoate (Vistaril Pamoate Capsule) 50 mg PO Q4H PRN PRN PRN Reason: mild anxiety Last Admin: 03/31/20 21:10 Dose: 50 mg Documented by: Ibuprofen (Motrin) 600 mg PO Q8H PRN PRN PRN Reason: Pain Score 1-10/10 Last Admin: 04/01/20 02:09 Dose: 600 mg Documented by: Loperamide HCl (Imodium) 2 mg PO Q4H PRN PRN PRN Reason: LOOSE STOOLS Methocarbamol (Methocarbamol) 1,500 mg PO Q6H PRN PRN PRN Reason: MUSCLE SPASM Last Admin: 03/31/20 21:10 Dose: 1,500 mg Documented by: Nicotine (Nicoderm Cq (Pbkc)) 14 mg TRANSDERM. DAILY [facility] Last Admin: 04/01/20 08:37 Dose: Not Given Documented by: Nutritional Formula (Lactose Free) (Ensure Enlive) 120 ml PO 4X/DAY [facility] Last Admin: 04/01/20 08:41 Dose: 120 ml Documented by: Ondansetron HCl (Zofran Odt) 8 mg PO Q8H PRN PRN PRN Reason: NAUSEA Last Admin: 03/31/20 21:10 Dose: 8 mg Documented by: Phenobarbital (Phenobarbital) 32.4 mg PO Q6H [facility]; Taper Stop: 04/02/20 11:44 Last Admin: 04/01/20 11:22 Dose: 32.4 mg Documented by: Senna (Senokot) 2 tablet PO QHS PRN PRN PRN Reason: Constipation Sodium Chloride () 10 - 40 ml IV UD PRN PRN Reason: SALINE FLUSH Last Admin: 03/31/20 23:06 Dose: 10 ml Documented by: Thiamine [facility]) [facility] Last Admin: 04/01/20 08:36 Dose: 100 mg Documented by: Trazodone HCl (Desyrel) 100 mg PO QHS PRN PRN PRN Reason: INSOMNIA Last Admin: 03/31/20 21:10 Dose: 100 mg Documented by: STROKE Vital Signs/Narrative: Vital Signs Temp Pulse Resp BP Pulse Ox 04/01/20 11:27 36.6 C 74 16 121/69 H 97 Medical Necessity - Tobacco Use Smoking Status: Current every day smoker Tobacco Use: Cigarettes Assessment/Plan All Active Problems Opiate withdrawal (Acute) Alcohol withdrawal (Acute) 1. acute opiate withdrawal: completed buprenorphine taper 2. acute alcohol withdrawal: on phenobarbital taper for 1 more day. On thiamine and folate. Patient was to have a court date today. Unclear how much (if any) is contributing to his symptoms. Inpatient E&M: 97892 Subs Hosp L2
--- NOTE | 2020-04-01 14:21 | CHAPLAIN ---
Type of Pastoral Visit _x__ Initial Visit ___ Follow-up Visit ___ On-call Visit ___ General Patient Visit ___ Spiritual Assessment ___ Family Conference ___ Bereavement ___ Rapid Response ___ Code Blue ___ Other (describe below) Pastoral Care Referral From _x__ Patient ___ Family ___ Nurse ___ Physician ___ Shower Attendant ___ Pasteurizing Supervisor ___ Other (describe below) Sacrament/Intervention _x__ Active listening ___ Anointing ___ Judaism ___ Bereavement ___ Communion ___ Christie exploration ___ ___ Life review _x__ Prayer ___ Reconciliation ___ Sacrament of Sick _x__ Supportive presence ___ Wedding ___ Other (describe below) Pastoral Comments patient was awake but resting in bed with eyes closed for much of the visit; pt was welcoming but did not actively engage in conversation; pt was polite and answered questions; pt states I am too old to keep doing this and I need to change; offer of support as pt desires; gave pt calling card
[2020-04-01 15:44] VITALS: BP 117/73; PULSE 80; RESP 16; TEMP 36.3; O2SAT 100
[2020-04-01] MEDS: Methocarbamol 750 MG Tablet 1500 MG PO ×2 (16:27→23:01)
[2020-04-01 22:59] VITALS: BP 114/64; PULSE 74; RESP 16; TEMP 36.6; O2SAT 96
[2020-04-01] MEDS: traZODone 100 MG Tablet PO (23:01)
[2020-04-01] MEDS: hydrOXYzine PAM 25 MG Capsule 50 MG PO (23:01)
[2020-04-02] MEDS: Phenobarbital 32.4 MG Tablet PO (06:02)
[2020-04-02] MEDS: Gabapentin 300 MG Capsule PO (06:03)
[2020-04-02 06:04] VITALS: BP 109/73; PULSE 66; RESP 14; TEMP 36.4; O2SAT 98
[2020-04-02] MEDS: Thiamine Hydrochloride 100 MG Tablet PO (08:32)
[2020-04-02] MEDS: Folic Acid 1 MG Tablet PO (08:32)
[2020-04-02] MEDS: Ibuprofen 600 MG Tablet PO (08:35)
[2020-04-02 08:39] VITALS: BP 132/76; PULSE 74; RESP 16; TEMP 36.6; O2SAT 100
--- NOTE | 2020-04-02 12:08 | DCINST_ITS ---
- Discharge Diagnoses Current Active Problems: Current Active and Chronic Problems Opiate withdrawal (Acute) Alcohol withdrawal (Acute) Heroin use (Chronic) IV drug abuse (Chronic) Tobacco use (Chronic) You will use the following diet at home:: No restrictions Your food should be the consistency of: Regular Discharge Activity: Return to Normal Activity Allergies/Adverse Reactions: Allergies No Known Allergies Allergy (Verified 03/29/20 01:10) Medications to take at Discharge NK 03/29/20 Primary Care Physician: NOT,DEFINED [NON-STAFF] - Test Results: Test results from this visit will be discussed in further detail at your follow- up appointment, if applicable. Please Follow Up With: [facility] When: This week Please Follow Up With: Dentist,Your When: as soon as possible Proposed Discharge Date: 04/02/20
--- NOTE | 2020-04-02 12:09 | PCM.DC.SUM ---
Discharge Date and Diagnosis - Problem List Patient Problems: Active and Suspected Problems Opiate withdrawal (Acute) Alcohol withdrawal (Acute) Date of Admission: 03/29/20 Date of Discharge: 04/02/20 - Primary Discharge Diagnosis Acute Problems: Active Problems Opiate withdrawal (Acute) Alcohol withdrawal (Acute) - Secondary Discharge Diagnosis Chronic Problems: Chronic Problems Heroin use (Chronic) IV drug abuse (Chronic) Tobacco use (Chronic) Hospital Course and Treatment Operations: None Procedures: None Summary of Care Provided: The patient is a 39 year old M presents seeking treatment for alcohol and opiate withdrawal. Patient was on phenobarbital as well as buprenorphine, respectively, for the substances. Patient course was uncomplicated. Patient plan is to go to [facility] outpatient program for further addiction treatment. Explained to the patient today that this is been a long-term chronic problem and that having all the supports he can get to help maintain sobriety. Patient also claims of pain in his tooth and will be following up with a dentist. Patient has a broken molar on the back left on the bottom. [] Patient Problems: Active and Suspected Problems Opiate withdrawal (Acute) Alcohol withdrawal (Acute) - Physical Exam Vitals/I&O's: Vital Signs Temp Pulse Resp BP Pulse Ox 36.6 C 74 16 132/76 H 100 04/02/20 08:39 04/02/20 08:39 04/02/20 08:39 04/02/20 08:39 04/02/20 08:39 Oxygen Delivery Method Room Air Weight: 65.3 kg Body Mass Index (BMI) 19.0 Intake and Output for Last 24 Hours 03/31/20 04/01/20 04/02/20 23:59 23:59 23:59 Intake Total 2049 1100 / 1100 1020 / 1020 Balance 2049 1100 / 1100 1020 / 1020 General: Alert, No apparent distress HEENT: Atraumatic, Normocephalic Oral: - - broken off molar #18 Current Medications Acetaminophen (Tylenol) 500 mg PO Q4H PRN PRN PRN Reason: Temp > 100.4 F Al Hydroxide/Mg Hydroxide (Mylanta Ii) 30 ml PO Q6H PRN PRN PRN Reason: dyspesia Bisacodyl (Dulcolax) 10 mg RECTAL DAILY PRN PRN Reason: Constipation Clonidine (Catapres) 0.1 mg PO Q8H PRN PRN PRN Reason: RESTLESSNESS Last Admin: 03/29/20 14:46 Dose: 0.1 mg Documented by: Dicyclomine HCl (Bentyl) 20 mg PO Q6H PRN PRN PRN Reason: abdominal discomfort Last Admin: 03/29/20 11:39 Dose: 20 mg Documented by: Folic Acid (Folic Acid) 1 mg PO DAILY@0800 [facility] Last Admin: 04/02/20 08:32 Dose: 1 mg Documented by: Gabapentin (Neurontin) 300 mg PO Q8H PRN PRN PRN Reason: moderate to severe anxiety Last Admin: 04/02/20 06:03 Dose: 300 mg Documented by: Hydroxyzine Pamoate (Vistaril Pamoate Capsule) 50 mg PO Q4H PRN PRN PRN Reason: mild anxiety Last Admin: 04/01/20 23:01 Dose: 50 mg Documented by: Ibuprofen (Motrin) 600 mg PO Q8H PRN PRN PRN Reason: Pain Score 1-10/10 Last Admin: 04/02/20 08:35 Dose: 600 mg Documented by: Loperamide HCl (Imodium) 2 mg PO Q4H PRN PRN PRN Reason: LOOSE STOOLS Methocarbamol (Methocarbamol) 1,500 mg PO Q6H PRN PRN PRN Reason: MUSCLE SPASM Last Admin: 04/01/20 23:01 Dose: 1,500 mg Documented by: Nicotine (Nicoderm Cq (Pbkc)) 14 mg TRANSDERM. DAILY [facility] Last Admin: 04/02/20 08:32 Dose: 14 mg Documented by: Nutritional Formula (Lactose Free) (Ensure Enlive) 120 ml PO 4X/DAY [facility] Last Admin: 04/02/20 08:32 Dose: 120 ml Documented by: Ondansetron HCl (Zofran Odt) 8 mg PO Q8H PRN PRN PRN Reason: NAUSEA Last Admin: 03/31/20 21:10 Dose: 8 mg Documented by: Senna (Senokot) 2 tablet PO QHS PRN PRN PRN Reason: Constipation Sodium Chloride () 10 - 40 ml IV UD PRN PRN Reason: SALINE FLUSH Last Admin: 03/31/20 23:06 Dose: 10 ml Documented by: Thiamine HCl (Vitamin B1) 100 mg PO DAILYCM [facility] Last Admin: 04/02/20 08:32 Dose: 100 mg Documented by: Trazodone HCl (Desyrel) 100 mg PO QHS PRN PRN PRN Reason: INSOMNIA Last Admin: 04/01/20 23:01 Dose: 100 mg Documented by: Discharge Diet: No Restrictions Discharge Activity: Return to Normal Activity Home Medications: Medications to take at Discharge NK 03/29/20 Primary Care Physician: NOT,DEFINED [NON-STAFF] - Please Follow Up With: 180 When: This week Please Follow Up With: Dentist,Your When: as soon as possible Disposition: Home Minutes spent on discharge:: 26 Patient Condition:: Good Medical Necessity - Tobacco Use Smoking Status: Current every day smoker Tobacco Use: Cigarettes Meaningful Use Info Meaningful Use Diagnoses (Choose all that apply): None applicable Inpatient E&M: 95948 Disch Hosp
--- NOTE | 2020-04-02 12:39 | CHAPLAIN ---
Type of Pastoral Visit ___ Initial Visit _x__ Follow-up Visit ___ On-call Visit ___ General Patient Visit ___ Spiritual Assessment ___ Family Conference ___ Bereavement ___ Rapid Response ___ Code Blue ___ Other (describe below) Pastoral Care Referral From _x__ Patient ___ Family ___ Nurse ___ Physician ___ Frozen Food Selector ___ Upholsterer [place] [employer] [place] ___ Other (describe below) Sacrament/Intervention ___ Active listening ___ Anointing ___ Confucianism ___ Bereavement ___ Communion ___ Christie exploration ___ ___ Life review ___ Prayer ___ Reconciliation ___ Sacrament of Sick _x__ Supportive presence ___ Wedding ___ Other (describe below) Pastoral Comments patient states he is waiting for discharge and I let them make arrangements for follow-up/rehab; pt answers questions but does not engage in conversation; pt says thank you for support
== END 2020-04-02 13:29 | disposition home or self-care (01) | DRG 773 ==
LOC: ED 02:17 → MS3 02:39
PROVIDERS: Admitting Provider Family Medicine; Emergency Provider Emergency Medicine
DX: F11.23 Opioid dependence with withdrawal (principal); F10.239 Alcohol dependence with withdrawal, unspecified; F17.210 Nicotine dependence, cigarettes, uncomplicated; G25.81 Restless legs syndrome; Z82.49 Family history of ischemic heart disease and other diseases of the circulatory system; Z86.19 Personal history of other infectious and parasitic diseases; F15.90 Other stimulant use, unspecified, uncomplicated; Y90.9 Presence of alcohol in blood, level not specified
CPT/HCPCS: 36415; 80053; 80307; 80320; 81001; 83735; 84100; 85025; 86703; 86704; 86705; 86706; 86708; 86709; 86803; 87340; 97802; 97803; 99283; J7120; A4216; G0480